=== PATIENT | female | born 1980 | race Caucasian/White ===

== ENCOUNTER 2021-01-24 18:48 | Emergency (ER) | payer BC ==
[~2021-01-24] VITALS: Ht 170.2 cm; Wt 88.5 kg
[2021-01-24] MEDS ORDERED: ONDANSETRON 4 MG ORAL DISINTEGRATING TAB PO ONE (20:40)
[2021-01-24] MEDS ORDERED: METOCLOPRAMIDE INJ 10MG/2ML VIAL (J2765 PER 1) IV ONE (22:00)
[2021-01-24] MEDS ORDERED: KETOROLAC 30 MG/ML 1ML VIAL IV ONE (22:00)
[2021-01-24] MEDS ORDERED: AUGMENTIN 875 MG TAB PO ONE (22:05)
[2021-01-24] MEDS ORDERED: NS 1,000 ML IV ONE (22:25)
[2021-01-24] MEDS ORDERED: ZOFR4TAB16 PO (23:54)
[2021-01-24] MEDS ORDERED: AUGM875T28 PO (23:55)
[2021-01-24] MEDS ORDERED: KETO10TAB PO (23:59)
[2021-01-25 00:18] VITALS: BP 127/79
== END 2021-01-25 00:28 | disposition home or self-care (01) ==
LOC: M ED 18:48
DX: T70.0XXA Otitic barotrauma, initial encounter (principal); H72.92 Unspecified perforation of tympanic membrane, left ear; R11.2 Nausea with vomiting, unspecified; E86.0 Dehydration; H66.92 Otitis media, unspecified, left ear
CPT/HCPCS: 96361; 96374; 96375; 99284; J1885; J2765; Q0162